=== PATIENT | male | born 1995 | race Caucasian/White ===

== ENCOUNTER 2017-02-08 17:01 | Emergency (ER) | payer SELFPAY ==
[~2017-02-08 17:01] MED LIST: [UNRECOGNIZED DRUG - CODE]
[2017-02-08 17:03] VITALS: BP 134/77; PULSE 73; RESP 18; TEMP 98.3; O2SAT 99
== END 2017-02-08 17:20 | disposition left against medical advice (07) ==
LOC: NED 17:01
DX: M79.605 Pain in left leg (principal)
CPT/HCPCS: 99281

== ENCOUNTER 2017-04-14 10:18 | Emergency (ER) | payer SELFPAY ==
[~2017-04-14] VITALS: Ht 190.5 cm; Wt 100.0 kg
[2017-04-14 10:19] VITALS: BP 157/89; PULSE 98; RESP 16; TEMP 99.4; O2SAT 100
[2017-04-14] MEDS ORDERED: AUGM875T PO (10:26)
[2017-04-14] MEDS ORDERED: PRED50 PO (10:26)
--- NOTE | 2017-04-14 10:26 | PD ---
HPI . sore throat x 3 days Chief Complaint: ENT Complaint Time Seen by Provider: 10:26 Travel History International Travel<30 days: No Contact w/Intl Traveler<30days: No Traveled to known affect area: No History of Present Illness HPI 22-year-old male NO past medical history other than tobaccoism here with complaints of sore throat for the past 3 days. Patient says that he took some amoxicillin that he had left over. He ran out of decided to come to the emergency department for further evaluation. He thinks he may have had a fever , but does not have thermometer. He has taken some [id number] pain relievers. He denies any difficulties swallowing or drooling. PFSH Past Medical History ADHD: Yes Developmental Delay: No Social History Alcohol Use: No Tobacco Use: No Allergies-Medications (Allergen,Severity, Reaction): Coded Allergies: No Known Allergies (Verified , 04/14/17) Reported Meds & Prescriptions Reported Meds & Active Scripts Active Prednisone 50 Mg Tab 50 Mg PO DAILY Augmentin (Amoxicillin-Clavulanate) 875-125 mg Tab 875 Mg PO BID not for use in CrCl <30 ml/min. Review of Systems General / Constitutional: No: Fever Eyes: No: Visual changes HENT: Positive: Sore Throat, No: Headaches Cardiovascular: No: Chest Pain or Discomfort Respiratory: No: Shortness of Breath Gastrointestinal: No: Abdominal Pain Genitourinary: No: Dysuria Musculoskeletal: No: Pain Skin: No Rash Neurologic: No: Weakness Psychiatric: No: Depression Endocrine: No: Polydipsia Hematologic/Lymphatic: No: Easy Bruising Physical Exam Narrative GENERAL: AAO x 3, no acute distress, Well-nourished, well-developed patient. SKIN: Warm and dry. No visible rashes or bruising. HEAD: Normocephalic and atraumatic. EYES: No scleral icterus. No injection or drainage. EOM intact, PERRLA ENT: No nasal drainage noted. Mucous membranes pink. Airway patent. Moderate posterior pharynx erythema with exudates bilaterally right greater than left. Uvula is midline. NECK: Supple, trachea midline. No JVD. Positive cervical chain lymphadenopathy CARDIOVASCULAR: Regular rate and rhythm without murmurs, gallops, or rubs. RESPIRATORY: Breath sounds equal bilaterally. No accessory muscle use. No rhonchi or rales. GASTROINTESTINAL: Visual inspection normal EXTREMITIES: No cyanosis or edema. BACK: Nontender without obvious deformity. No CVA tenderness. PSYCH: AAO x 3, normal affect. Data Data Last Documented VS Vital Signs Date Time Temp Pulse Resp B/P Pulse Ox O2 Delivery O2 Flow Rate FiO2 04/14/17 10:19 99.4 98 16 157/89 100 MDM Medical Decision Making Medical Screen Exam Complete: Yes Emergency Medical Condition: Yes Medical Record Reviewed: Yes Differential Diagnosis acute pharyngitis, exudative pharyngitis, less likely sinusitis, less likely peritonsillar abscess Narrative Course In summary this is a 22-year-old male presenting with complaints of sore throat for 3 days. A physical exam was done and demonstrates exudative pharyngitis. I will treat him with Augmentin. I provided him with some prednisone for inflammation. I've advised him if he develops any difficulty drooling or shortness of breath, to go to the nearest emergency department. Patient verbalized understanding of instructions, questions were answered, and thanked me for their care. I advised them if their condition worsens, please return to the nearest emergency room for further care. Diagnosis Primary Impression: Exudative pharyngitis Patient Instructions: General Instructions Additional Instructions: Take medications as prescribed. Try salt water gargles. Do not share utensils, toothbrush, etc. If you develop difficulty breathing, please go to the nearest emergency room. Please return to emergency department if your symptoms return or worsen. Follow up with your primary care provider. Take medications as prescribed. Med/Other Pt SpecificInfo: Prescription(s) given Scripts Prednisone 50 Mg Tab50 Mg PO DAILY #5 TAB Prov:Marianela Grayson MD 04/14/17 Amoxicillin-Clavulanate (Augmentin)875-125 mg [id number] Mg PO BID #20 TAB not for use in CrCl <30 ml/min. Prov:Marianela Grayson MD 04/14/17 Disposition: 01 DISCHARGE HOME Condition: Stable Ping Marroquin April 14, 2017 10:26
== END 2017-04-14 10:43 | disposition home or self-care (01) ==
LOC: NEPK 10:18
DX: J02.9 Acute pharyngitis, unspecified (principal); Z86.59 Personal history of other mental and behavioral disorders
CPT/HCPCS: 99282

== ENCOUNTER 2017-04-16 14:27 | Emergency (ER) | payer SELFPAY ==
[~2017-04-16] VITALS: Ht 190.5 cm; Wt 100.0 kg
[~2017-04-16 14:27] MED LIST changes: +AUGM875T PO; +PRED50 PO; -[UNRECOGNIZED DRUG - CODE]
[2017-04-16 14:29] VITALS: BP 158/80; PULSE 102; TEMP 98.3; O2SAT 97
--- NOTE | 2017-04-16 14:42 | PD ---
Physical Exam Time Seen by Provider: 14:41 Narrative 22 y/o male presents with laceration to L 4th finger, he was cutting chicken with a knife. Currently wrapped in a paper towel at triage desk. Vital signs reviewed. Seen at triage desk. Awaiting bed placement. Data Data Last Documented VS Vital Signs Date Time Temp Pulse Resp B/P Pulse Ox O2 Delivery O2 Flow Rate FiO2 04/16/17 14:29 98.3 102 158/80 97 MDM Medical Record Reviewed: Yes Supervised Visit with JOSE: No Alexis Simental April 16, 2017 14:42
[2017-04-16] MEDS ORDERED: IBUPROFEN 800 MG TAB PO ONE (15:00)
[2017-04-16] MEDS ORDERED: TETANUS/DIPHTHERIA TOXOID ADULT 0.5 ML VIAL IM ONE (15:00)
--- NOTE | 2017-04-16 15:00 | PD ---
HPI Chief Complaint: Laceration/Skin Injury Time Seen by Provider: 15:00 Travel History International Travel<30 days: No Contact w/Intl Traveler<30days: No Traveled to known affect area: No History of Present Illness HPI 22-year-old male presents to emergency department with complaint of a laceration to his left fourth digit from a knife while cutting chicken at work today. Denies being up-to-date on his tetanus vaccination. Denies paresthesias , loss of sensation, decreased range of motion, decreased strength to the affected finger. Has applied pressure and dressing to control the bleeding. No known allergies. Has no other medical complaints. No other modifying factors or associated signs and symptoms. PFSH Past Medical History ADHD: No Anxiety: Yes Developmental Delay: No Diminished Hearing: No Tetanus Vaccination: > 5 Years Influenza Vaccination: No Past Surgical History Surgical History: No Previous Surgery Social History Alcohol Use: Yes (ON OCCASION) Tobacco Use: Yes (1PPD) Substance Use: No Allergies-Medications (Allergen,Severity, Reaction): Coded Allergies: No Known Allergies (Verified , 04/14/17) Reported Meds & Prescriptions Reported Meds & Active Scripts Active Mupirocin Topical (Mupirocin) 2 % Oint 1 Applic TOPICAL BID PRN Ibuprofen 800 Mg Tab 800 Mg PO Q6HR PRN Prednisone 50 Mg Tab 50 Mg PO DAILY Augmentin (Amoxicillin-Clavulanate) 875-125 mg Tab 875 Mg PO BID not for use in CrCl <30 ml/min. Review of Systems Except as stated in HPI: all other systems reviewed are Neg Physical Exam Narrative GENERAL: Well-nourished, well-developed male patient, in no acute distress SKIN: Warm and dry. Avulsion to the distal aspect of the left fourth finger; no obvious bony structures visualized or palpated; sensory intact; the finger with full range of motion; less than 3 second cap refill; good opposition. HEAD: Atraumatic. Normocephalic. EYES: Pupils equal and round. No scleral icterus. No injection or drainage. ENT: Mucosa pink and moist. Airway patent. NECK: Trachea midline. CARDIOVASCULAR: Regular rate. RESPIRATORY: No accessory muscle use. GASTROINTESTINAL: Flat. MUSCULOSKELETAL: No obvious deformities. No clubbing. No cyanosis. No edema. NEUROLOGICAL: Awake and alert. Oriented 3. No obvious cranial nerve deficits. Motor grossly within normal limits. Normal speech. PSYCHIATRIC: Appropriate mood and affect; insight and judgment normal. Data Data Last Documented VS Vital Signs Date Time Temp Pulse Resp B/P Pulse Ox O2 Delivery O2 Flow Rate FiO2 04/16/17 14:29 98.3 102 158/80 97 Orders Finger ([id number]) (04/16/17 ) Wound Care (04/16/17 14:55) Tetanus/Diphtheria Tox Adult (Tetanus/Di (04/16/17 15:00) Ibuprofen (Motrin) (04/16/17 15:00) MDM Medical Decision Making Medical Screen Exam Complete: Yes Emergency Medical Condition: Yes Medical Record Reviewed: Yes Differential Diagnosis Laceration, avulsion, fracture Narrative Course 22-year-old male with laceration, avulsion to the distal aspect of the left fourth finger from a cutting knife. Tetanus updated in the ER. Ibuprofen ordered. Wound care provided in the ER. Finger splint provided for support. Patient is currently taking Augmentin for exudative pharyngitis and has 8 days left of the prescription. Left fourth finger x-ray ordered to rule out bone involvement. 1616: Left fourth finger x-ray with no acute fracture. Pressure dressing applied to his finger. Finger splint provided for support. Ibuprofen prescribed for home. Patient currently taking antibiotics. Patient verbalizes understanding and agreement with treatment plan. Patient is medically cleared and stable for discharge. Discussed reasons to return to the emergency department. Instructed patient to follow up with primary care provider. Patient agrees with treatment plan. The patients vital signs are stable and the patient is stable for outpatient follow-up and treatment. Patient discharged home, stable and in no acute distress. Diagnosis Primary Impression: Laceration of finger of left hand Qualified Code: S61.219A - Laceration of finger of left hand, initial encounter Additional Impression: Avulsion of finger tip Qualified Code: S61.209A - Avulsion of finger tip, initial encounter Referrals: Primary Care Physician Patient Instructions: Finger Laceration (ED), General Instructions, Skin Avulsion (ED) Departure Forms: Tests/Procedures, Work Release Enter return to work date: April 20, 2017 Additional Instructions: Keep area clean and dry Ibuprofen or Tylenol as instructed and as needed for pain and inflammation Ice pack to area as needed to decrease pain Follow up with primary care provider Return to the emergency department immediately with worsening of symptoms, particularly if reddened streaks up or down the affected extremity from the suture site, fever, numbness/tingling in the affected extremity, loss of sensation in the affected extremity, severe swelling of the affected Med/Other Pt SpecificInfo: Prescription(s) given Scripts Mupirocin Topical 2 % Oint1 Applic TOPICAL BID PRN (WOUND CARE) #1 TUBE Ref 0 Prov:Ashleigh Durand 04/16/17 Ibuprofen 800 Mg [id number] Mg PO Q6HR PRN (PAIN) #30 TAB Ref 0 Prov:Ashleigh Durand 04/16/17 Disposition: 01 DISCHARGE HOME Condition: Stable Ashleigh Durand April 16, 2017 15:00
[2017-04-16] MEDS ORDERED: IBUP800T23 PO (15:04)
[2017-04-16] MEDS ORDERED: MUPI2OIN TOPICAL (15:04)
--- NOTE | 2017-04-16 16:05 | RADRPT ---
EXAM DATE/TIME: 04/16/2017 15:21 [facility] COMPARISON: No previous studies available for comparison. INDICATIONS : pt states that he cut his fourth digit, left hand at [employer] while working today. MEDICAL HISTORY : None. SURGICAL HISTORY : None. ENCOUNTER: Initial ACUITY: 1 day PAIN SCORE: 1/10 LOCATION: Left fourth digit FINDINGS: Examination of the fourth digit of the left hand demonstrates no evidence of fracture or dislocation. No radiopaque foreign bodies are seen. Soft tissue laceration is present CONCLUSION: 1. There is no evidence of acute fracture. Patrice Loving MD on April 16, 2017 at 15:45 Board Certified Radiologist. This report was verified electronically.
== END 2017-04-16 16:35 | disposition home or self-care (01) ==
LOC: NEPK 14:27
DX: S61.215A Laceration without foreign body of left ring finger without damage to nail, initial encounter (principal); S61.205A Unspecified open wound of left ring finger without damage to nail, initial encounter; F17.200 Nicotine dependence, unspecified, uncomplicated; Z23 Encounter for immunization; Z86.59 Personal history of other mental and behavioral disorders; W26.0XXA Contact with knife, initial encounter; Y93.G1 Activity, food preparation and clean up; Y99.0 Civilian activity done for income or pay
CPT/HCPCS: 73140; 90471; 90714